=== PATIENT | male | born 1970 | race Hispanic/Latino ===

== ENCOUNTER 2018-07-06 10:18 | Day surgery (SDC) | payer BC, OTHER ==
[2018-07-05 09:57] VITALS: BMI 22.9
[2018-07-06 11:03] LABS: BASO # 0.02 K/mm3 (0.0-2.0); BASO % 0.5 % (0.0-3.0); EOS # 0.1 (0.0-0.7); EOS % 1.4 % (1.5-5.0); GRAN # 2.97 (1.4-6.5); GRAN % 68.7 % (50.0-68.0); HEMOGLOBIN 16.1 g/dL (14.0-18.0); LYMPH # 0.9 (1.2-3.4); LYMPH % 19.9 % (22.0-35.0); MEAN CELL VOLUME 81.7 fl (80.0-105.0); MEAN CORPUSCULAR HEMOGLOBIN 28.6 pg (25.0-35.0); MEAN PLATELET VOLUME 10.1 fl (7.0-11.0); MONO # 0.4 (0.1-0.6); MONO % 9.5 % (1.0-6.0); RBC 5.63 10^6/uL (3.5-6.1); RED CELL DISTRIBUTION WIDTH 12.7 % (11.5-14.5); WHITE BLOOD COUNT 4.3 10^3/uL (4.5-11.0)
[2018-07-06 11:11] LABS: INR 1.2; PARTIAL THROMBOPLASTIN TIME 27.9 Seconds (25.1-36.5); PROTHROMBIN TIME 13.8 SECONDS (9.4-12.5)
[2018-07-06 11:18] LABS: BLOOD UREA NITROGEN 14 mg/dL (7-21); CALCIUM 8.8 mg/dL (8.4-10.5); GFR NON-AFRICAN AMERICAN > 60
[2018-07-06 11:28] VITALS: RESP 18
[2018-07-06] MEDS ORDERED: Iodixanol 320 MG/ML 200 ML BOTTLE IV ONE ×2 (12:42→13:15)
[2018-07-06] MEDS ORDERED: Lidocaine 2% Inj (20ml) ONE (12:42)
[2018-07-06] MEDS ORDERED: Iodixanol 320 mg/ml 150 ml Bottle IV ONE (12:42)
[2018-07-06] MEDS ORDERED: Midazolam 2 MG/2 ML VIAL ONE ×3 (12:53→13:30)
[2018-07-06] MEDS ORDERED: Nitroglycerin 50mg in D5W 50 MG/250 ML BOTTLE IV ONE (13:00)
[2018-07-06] MEDS ORDERED: Oxycodone/Acetaminophen 5/325 mg Tab PO PRN (14:31)
[2018-07-06] MEDS ORDERED: Sodium Chloride 0.45% 1,000 ML IV SCH (14:45)
[2018-07-06 15:40] VITALS: TEMP 98.4; O2SAT 97
[2018-07-06 18:24] VITALS: BP 133/77; PULSE 68
--- NOTE | 2018-07-06 19:27 | VASCULAR ---
Date of service: 07/06/2018 PROCEDURE: 1. Bilateral iliac venograms with bilateral punctures. 2. Left common femoral vein, left external iliac vein, and left common iliac vein angioplasty and stent placement 3. IVC gram HISTORY: Previous DVT and IVC filter placement. Previous IVC filter retrieval. 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 Nonresponsive to compression therapy and exercise. 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 COMPARISON: TECHNIQUE: The relative risks and indications of the procedure were explained the patient consent obtained. The patient was placed supine on the arteriogram table and both groins prepped and draped usual sterile fashion. Conscious sedation monitoring were provided throughout the procedure by a nurse. Under ultrasound guidance, the proximal left greater saphenous vein was punctured with a micropuncture set. A 5 Cymro sheath was placed. Limited venography demonstrated extensive occlusive disease and post phlebitic change in left iliac venous system. With some difficulty 5 Cymro catheter and glidewire negotiated through the occluded left iliac venous system. And IVC gram was performed. The guidewire was advanced over the bifurcation and the catheter was placed in the right common femoral vein. A right iliac venogram was performed. Under ultrasound guidance the right common femoral vein was punctured with a micropuncture set. A 7 Cymro sheath was placed. The Glidewire from the left groin was advanced through the right sheath and both ends of the wire controlled. A 10 Cymro sheath was placed on the right. A 5 Cymro bearing sting catheter was advanced from the right groin and placed in the left common femoral vein. An angled glidewire was used to select the large left profunda femoral vein. A support wire was placed. The left common femoral vein and left profunda femoral vein origin were dilated with a 12 Cymro balloon. The left external iliac vein and left common iliac vein were dilated with a 14 mm balloon. A 16 mm x 90 Wallstent was deployed from the left profunda femoral vein origin to the left external iliac vein. In a coaxial fashion a 18 mm by 60 mm Wallstent was deployed in the left common iliac vein. The stents were dilated with a 14 mm balloon. Completion venograms were obtained. The patient tolerated the procedure well. The sheaths were removed hemostasis obtained. FINDINGS: There is extensive post phlebitic change involving the left common femoral vein, left external iliac vein and the distal left common iliac vein. 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 The right common femoral vein, external iliac vein and common iliac vein are normal in appearance. There are striations in the infra renal IVC at the previous level of the IVC filter. No significant stenosis is appreciated After venous angioplasty and stent placement. There is brisk flow across the left common femoral vein and iliac venous system. IMPRESSION: Severe post phlebitic changes in occlusive disease involving the left common femoral vein, left external iliac vein, and left common iliac vein. Successful left common femoral vein, left external iliac vein, and left common iliac vein angioplasty and stent placement Normal right iliac venous system. Mild irregularity of the infrarenal IVC, most likely related to previous IVC filter placement.
== END 2018-07-06 18:12 | disposition home or self-care (01) ==
LOC: SDSVAS 10:18
PROVIDERS: ATTEND Radiology Vascular & Interventional Radiology
DX: I87.092 Postthrombotic syndrome with other complications of left lower extremity (principal); I10 Essential (primary) hypertension; Z86.718 Personal history of other venous thrombosis and embolism